=== PATIENT | male | born 1985 | race Caucasian/White ===

== ENCOUNTER 2016-06-20 22:44 | Emergency (ER) | payer BC, OTHER ==
[~2016-06-20] VITALS: Ht 177.8 cm; Wt 114.5 kg
[2016-06-20 22:49] VITALS: TEMP 37.1; Ht 177.8 cm; Wt 114.5 kg
--- NOTE | 2016-06-20 23:42 | EMERGENCY ROOM VISIT NOTE ---
History First contact with patient: 23:07 Chief Complaint: HAND PAIN/INJURY Stated Complaint: HAND/THUMB PAIN ON RIGHT SIDE History of Present Illness The patient is a 30 year old male who presents to the Emergency Room via private vehicle coming by female with complaints of "hand/thumb pain on right side". Patient states that he "jammed" his thumb around 1 month ago with an unknown injury and has bumped it several times since then. He states that off and on his experience pain in the right thumb and persistently injures this. He does have pain with flexion of the thumb at the base. He rates the pain as a 4/10 and is variable. 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 His significant other who accompanies him has a history of scaphoid fracture therefore she is concerned that he may have this as well. He states that recently today he accidentally struck this region on the doorknob worsening the pain. Review of Systems A complete 6-point Review of Systems was discussed with the patient, with pertinent positives and negatives listed in the History of Present Illness. All remaining Review of Systems questions can be considered negative unless otherwise specified. Past Medical/Surgical History Medical Problems: (1) No Known Active Medical Problems High blood pressure, was indeed extraction Family History Diabetes, heart disease, blood pressure, cancer Social History Smoking Status: Never Smoker Social History: Patient lives at home with . He denies alcohol and tobacco use. Current/Historical Medications No Active Prescriptions or Reported Meds Allergies Coded Allergies: Iodinated Diagnostic Agents (Verified Allergy, Severe, ANAPHYLAXIS, ) Iodine (Verified Allergy, Severe, ANAPHYLAXIS, 06/20/16) Shellfish (Verified Allergy, Unknown, ., 06/20/16) Physical Exam Vital Signs Date Time Temp Pulse Resp B/P Pulse Ox O2 Delivery O2 Flow Rate FiO2 06/21/16 00:03 88 18 158/110 96 06/20/16 22:49 37.1 72 18 163/104 97 Room Air Physical Exam VITAL SIGNS - Vital signs and nursing notes were reviewed. Patient is afebrile , he is hypertensive at 163/104, he is not tachycardic and is saturating well on room air 97%. GENERAL -30-year-old male appearing his stated age who is in no acute distress. Communicates well with provider and answers questions appropriately. SKIN - Without rashes. The integument overlying the right hand is unremarkable. EXTREMITIES - No clubbing or peripheral cyanosis. No pretibial edema present. +3 /5 right radial pulses palpated throughout. +5/5 strength noted in UE/LE bilaterally. Positive Daly test. There is no snuffbox tenderness. Minimal tenderness to palpation. The pain is on the dorsal and volar aspect of the right first MCP joint. Minimal tenderness to palpation. Good capillary refill. Patient able flex and extend the thumb. There is no tenderness to the hand or other digits. There is no wrist tenderness. There is no forearm tenderness. NEUROLOGIC - Sensory intact to light touch throughout the right hand. No neurologic deficits. Medical Decision & Procedures ER Provider Diagnostic Interpretation: Radiograph as read by myself and revealed no acute fracture or dislocation. Official result pending. Patient was informed upon this. Patient was informed upon the chance of occult fracture. Medical Decision Emergency department protocol had already obtained a radiograph of the right thumb prior to me seeing the patient. Patient was seen and evaluated as above. Radiograph as per my interpretation does not reveal any acute fractures. Examination reveals potential de Quervain's tenosynovitis but an occult fracture cannot be ruled out. Patient was educated upon management and fitted with a thumb spica splint. This was with good fit. He was found to be hypertensive and was instructed upon follow-up. He did not want anything for pain. I do not suspect any emergent or surgical nature the patient's pain at this time. Patient was instructed upon management, had questions answered prior to discharge and was discharged home in good condition. He was going to give the name for orthopedic surgeon however his indicated that they had seen [facility] and would go there. In the evaluation and treatment of this patient, the following differential diagnoses were considered: Wrist Sprain, Wrist Fracture, de Quervain's tenosynovitis, contusion, finger fracture, Wrist Dislocation, Scapholunate Dissociation, Carpal Fracture, Metacarpal Fracture, Radial Styloid Process Fracture, Ulnar Styloid Process Fracture, or Carpal Tunnel Syndrome. Impression Primary Impression: Pain of right thumb Departure Information Dispostion Home / Self-Care Condition GOOD Prescriptions No Active Prescriptions or Reported Meds Referrals Dina Rojas PA-C (PCP) Patient Instructions My [facility] Additional Instructions You have been treated in the Emergency Department for right thumb pain. For pain control, you can use the following essm-ieu-dzhujke medicines (if >12 yo): - Regular strength (325mg/tab) Tylenol (acetaminophen) 2 tabs every 4-6 hours as needed. Do not exceed 12 tablets in a 24 hour period. Avoid taking more than 4 grams (4000 mg) of Tylenol per day. This includes any other sources of acetaminophen you may take on a regular basis. - Regular strength (200 mg/tab) Advil (ibuprofen) 1-2 tabs every 4-6 hours as needed. Do not exceed a dose of 3200 mg per day. If this is a recent injury (<24 hrs), ice can be applied to the area of pain for the first 3 days to help decrease pain and inflammation. You have been provided the number for an Orthopaedic Surgeon. You should call this number as soon as possible to establish a follow-up visit from today's Emergency Department visit. Keep the brace/splint in place until evaluated by Orthopedics. Return to the Emergency Department if your current symptoms worsen despite treatment course outlined above, or if you develop any of the following symptoms : intractable pain despite aforementioned treatment course or new onset of numbness or tingling of the fingers. Your blood pressure was found to be elevated today at 163/104. Please have this repeated with your family doctor. Please return to the emergency department with any new/concerning symptoms.
[2016-06-21 00:03] VITALS: BP 158/110; PULSE 88; O2SAT 96
--- NOTE | 2016-06-21 06:36 | DIAGNOSTIC IMAGING REPORT ---
RIGHT THUMB RADIOGRAPHS CLINICAL HISTORY: Right thumb pain. Injury. COMPARISON: None FINDINGS: Alignment of the right thumb is anatomic. There is no acute fracture or osseous lesion. Joint spaces are preserved. No erosions are identified. IMPRESSION: No abnormality of the right thumb. Electronically signed by: Prabhjot Guerrero M.D. 06/21/2016 6:34 AM Dictated Date/Time: 06/21/2016 6:33 AM
== END 2016-06-21 00:04 | disposition home or self-care (01) ==
LOC: C.EDB 22:45 → C.EDD 06-21 00:04
DX: M79.644 Pain in right finger(s) (principal); Z91.013 Allergy to seafood; Z91.041 Radiographic dye allergy status; Z83.3 Family history of diabetes mellitus; Z82.49 Family history of ischemic heart disease and other diseases of the circulatory system

== ENCOUNTER → 2016-06-28 | Outpatient (CLI) | payer BC, OTHER ==
[2016-06-28 14:26] LABS: CHOLESTEROL/HDL RATIO 5.9
== END | disposition home or self-care (01) ==
LOC: C.LAB 11:42
PROVIDERS: ATTEND Internal Medicine
DX: E78.5 Hyperlipidemia, unspecified (principal)

== ENCOUNTER 2016-08-12 23:29 | Emergency (ER) | payer BC, OTHER ==
[~2016-08-12] VITALS: Ht 177.8 cm; Wt 115.8 kg
[2016-08-12 23:33] VITALS: Ht 177.8 cm; Wt 115.8 kg
[2016-08-12] MEDS ORDERED: IBUPROFEN 800 MG TAB PO STA (23:42)
[2016-08-12] MEDS ORDERED: ACETAMINOPHEN 500 MG TAB PO STA (23:42)
[2016-08-12] MEDS ORDERED: ALBUT/IPRATROP 3MG/0.5MG NEB 3 ML VIAL INH STA (23:52)
[2016-08-12] MEDS ORDERED: ALBUTEROL HFA 8 GM INHALER INH STA (23:52)
[2016-08-12] MEDS ORDERED: PSEUDOEPHEDRINE HCL 30 MG TAB PO STA (23:52)
[2016-08-13 00:56] VITALS: TEMP 37.5
--- NOTE | 2016-08-13 01:16 | EMERGENCY ROOM VISIT NOTE ---
History First contact with patient: 23:40 Chief Complaint: ILLNESS Stated Complaint: EAR PRESSURE, COUGH, NASAL CONGESTION History of Present Illness The patient is a 30 year old male who presents to the Emergency Room with complaints of fever, chills, cough, congestion, body aches and pains for the past 4 days. Fever started yesterday. Patient does not smoke. Patient denies chest pain, dyspnea, neck stiffness, abdominal pain, vomiting, diarrhea, sore throat. He is tolerating by mouth fluids and food. No Tylenol or Motrin today. Review of Systems See HPI for pertinent positives & negatives. A total of 10 systems reviewed and were otherwise negative. 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 Vital signs febrile GENERAL: Pleasant male, in no acute distress, nondiaphoretic, well-developed well-nourished. SKIN: The skin was without rashes, erythema, edema, or bruising. There is no tenting of the skin. Capillary reflex less than 2 seconds. HEAD: Normocephalic atraumatic. EARS: External auditory canals clear, tympanic membranes pearly guerrero without erythema or effusion bilaterally. EYES: Pupils equal round and reactive to light and accommodation. Conjunctivae without injection, sclerae without icterus. Extraocular movements intact. NOSE: Patent, turbinates without inflammation or discharge. No sinus tenderness. MOUTH: Mucous membranes mile dry. Pharynx without erythema or exudate. Uvula midline. Airway patent. Tongue does not deviate. NECK: Supple without nuchal rigidity. No lymphadenopathy. No thyromegaly. Cervical spine is nontender. No JVD. HEART: Regular rate and rhythm without murmurs gallops or rubs. LUNGS: Clear to auscultation bilaterally without wheezes, rales or rhonchi. No dullness to percussion. No retractions or accessory muscle use. ABDOMEN: Positive bowel sounds x 4. Normal tympanic percussion. Soft, nontender, without masses or organomegaly. Ross sign negative. No guarding or rebound tenderness. MUSCULOSKELETAL: No muscle atrophy, erythema, or edema noted. NEURO: Patient was alert and oriented to person place and time. Normal sensation to light and sharp touch. No focal neurological deficits. Medical Decision & Procedures Laboratory Results Test 08/12/16 23:48 Influenza Type A Antigen Neg for Influ A (NEG) Influenza Type B Antigen Neg for Influ B (NEG) Medications Administered Medications (Trade) Dose Ordered Sig/Ida Route Start Time Stop Time Status Last Admin Dose Admin Acetaminophen (Tylenol Tab) 1,000 mg NOW STAT PO 08/12/16 23:42 08/12/16 23:43 DC 08/13/16 00:08 1,000 MG Ibuprofen (Motrin Tab) 800 mg NOW STAT PO 08/12/16 23:42 08/12/16 23:43 DC 08/13/16 00:08 800 MG Albuterol/ Ipratropium (Duoneb) 3 ml NOW STAT INH 08/12/16 23:52 08/12/16 23:53 DC 08/13/16 00:10 3 ML Pseudoephedrine HCl (Sudafed Tab) 60 mg NOW STAT PO 08/12/16 23:52 08/12/16 23:53 DC 08/13/16 00:09 60 MG ED Course Prior records/ancillary studies reviewed. Triage Nursing notes reviewed. Additional history obtained from family The patient's history was concerning for fever. Differential diagnosis: Etiologies such as viral syndrome, otitis, pharyngitis, pneumonia, influenza, meningitis, urinary tract infection, sepsis, bacteremia, as well as others were entertained. Physical examination: Patient is alert, interactive and well-appearing ER treatment provided: Tylenol, Motrin, nebulizer On reassessment the patient felt better. Diagnostics interpreted by me: The labs revealed negative flu Imaging studies: Chest x-ray with no acute consolidation, pneumothorax or free air per my interpretation This appears to be consistent with influenza. Patient is well appearing. His symptoms of an greater than 2 days. He is outside the window to treat. No signs of meningitis. He was tolerating fluids. He felt much better after being medicated as above. He was advised to rest, stay well-hydrated and to take medications as directed. He was advised no school until 24 hours fever free as he is highly contagious. He was advised to follow-up health services in a few days or here in the ER sooner for high fevers, lethargy, neck stiffness , worsening signs or symptoms or as needed. By the evaluation outlined above emergent etiologies such as otitis, pharyngitis, pneumonia, meningitis, urinary tract infection, sepsis, bacteremia, as well as others were deemed relatively unlikely. The pt informed about the findings as listed above. All questions were answered and pleased with the treatment. Return instructions were outlined and the patient was discharged in stable condition. Referral: The patient was referred back to their primary care physician for follow-up in 2 to 3 days for a recheck of the current condition. Medical Decision As above Impression Primary Impression: Influenza Departure Information Dispostion Home / Self-Care Condition GOOD Prescriptions No Active Prescriptions or Reported Meds Referrals RV. Hicks MD (PCP) Patient Instructions My [facility] Additional Instructions Acetaminophen(Tylenol) may be used for fever or pain. Use 1000mg every six hours as needed. Avoid using more than 3000mg in a 24 hour period. (AND/OR) Ibuprofen(Motrin, Advil) may be used for fever or pain. Use 600mg every six hours as needed. Take with food. Avoid using more than 2400mg in a 24 hour period. Do not use 2400mg per day for more than three consecutive days without physician direction. Prolonged inappropriate use can lead to stomach upset or ulcers. Afrin nasal spray: 2-3 sprays to each nostril twice daily as needed for congestion. Do not use for more than 3-4 days because it can lead to worsening rebound congestion. Pseudoephedrine(Sudaphed): 30-60mg every 6 hours as needed for nasal congestion. Do not take this with other stimulant products or supplements. Albuterol Inhaler: Take 2 puffs four times daily for seven days, then as needed. Rest and drink plenty of fluids. Controlling your fever with Tylenol and Ibuprofen as above will make you feel better. Wash your hands after nose blowing, sneezing, or coughing. Most germs are spread through contact, therefore improper hygiene may result in your close contacts and loved ones becoming ill just like you. Continue current medications. Return to the ER for severe headache, neck stiffness, chest pain, difficulty breathing, fevers, vomiting, worsening of your condition, or as needed. Follow up with your primary physician this week for a recheck of your current condition.
[2016-08-13 01:33] VITALS: BP 157/97; PULSE 102; O2SAT 96
[2016-08-13 03:09] LABS: INFLUENZA A PCR Neg for Influ A (NEG); INFLUENZA B PCR Neg for Influ B (NEG)
--- NOTE | 2016-08-13 07:53 | DIAGNOSTIC IMAGING REPORT ---
TWO VIEW CHEST CLINICAL HISTORY: Cough and fever. FINDINGS: PA and lateral chest radiographs are obtained. No prior studies are available for comparison at the time of dictation. The cardiomediastinal silhouette is unremarkable. The lungs and pleural spaces are clear. There is no pneumothorax. The bony thorax appears intact. IMPRESSION: No active disease in the chest. Electronically signed by: Bartolo Potter M.D. 08/13/2016 7:52 AM Dictated Date/Time: 08/13/2016 7:52 AM
== END 2016-08-13 01:25 | disposition home or self-care (01) ==
LOC: C.EDB 23:30 → C.EDA 08-13 01:25
DX: J11.1 Influenza due to unidentified influenza virus with other respiratory manifestations (principal); I10 Essential (primary) hypertension; E78.5 Hyperlipidemia, unspecified

== ENCOUNTER → 2017-08-29 | Outpatient (CLI) | payer OTHER ==
[2017-08-29 17:57] LABS: ALBUMIN 4.3 gm/dl (3.4-5.0); ALT/SGPT 35 U/L (12-78); BLOOD UREA NITROGEN 12 mg/dl (7-18); CALCIUM 9.1 mg/dl (8.5-10.1); CARBON DIOXIDE 26 mmol/L (21-32); CREATININE 0.88 mg/dl (0.60-1.40); GLUCOSE 99 mg/dl (70-99); POTASSIUM 3.6 mmol/L (3.5-5.1); SODIUM 137 mmol/L (136-145)
[2017-08-29 18:06] LABS: ALKALINE PHOSPHATASE 92 U/L (45-117); AST/SGOT 20 U/L (15-37); CHOLESTEROL 219 mg/dl (0-200); LDL CHOLESTEROL CALCULATED 122 mg/dl; TOTAL PROTEIN 8.4 gm/dl (6.4-8.2)
== END | disposition home or self-care (01) ==
LOC: C.LAB1850 16:31
PROVIDERS: ATTEND Internal Medicine
DX: E78.5 Hyperlipidemia, unspecified (principal)

== ENCOUNTER 2017-09-26 15:23 | Emergency (ER) | payer OTHER ==
[~2017-09-26] VITALS: Ht 175.3 cm; Wt 119.4 kg
[2017-09-26 15:32] VITALS: BP 163/99; PULSE 92; TEMP 36.8; O2SAT 97; Ht 175.3 cm; Wt 119.4 kg
--- NOTE | 2017-09-26 16:07 | EMERGENCY ROOM VISIT NOTE ---
ED Visit Note First contact with patient: 15:35 CHIEF COMPLAINT: Sore throat, congestion, ear pain and cough 1.5 days HISTORY OF PRESENT ILLNESS: Patient is a 31-year-old male who presents the emergency department for evaluation of upper respiratory symptoms that started 1.5 days ago. He reports pressure in his ears, a congested, runny nose, dry cough and a sore throat. He has not checked his temperature with a thermometer. He has been taking DayQuil and drinking a lot of orange juice. He reports that his 13-year-old daughter was diagnosed with strep today. 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 He states his PCP could not see him for 3 days. REVIEW OF SYSTEMS: Review of systems as per HPI. All other systems reviewed were negative. 10 systems reviewed. PMH: Electronic medical records are reviewed and summarized as above/below. See Problem List. SOCIAL HISTORY: Patient lives at home with his family. Non-smoker.. PHYSICAL EXAM: Vital Signs: Reviewed Nurse's notes. MENTAL STATUS: Alert and cooperative. Nontoxic appearing. HEAD: Atraumatic, without temporal or scalp tenderness. EYES: PERRL, EOMI, no discharge or injection. EARS: Tympanic membranes intact, not inflamed, have normal contour. External canals clear. NOSE: Nares patent, turbinates edematous and boggy with clear rhinorrhea. MOUTH: Mucous membranes moist, no lesions, tongue and gums appear normal. THROAT: No pharyngeal injection, exudates, or tonsillar hypertrophy. Airway is patent. NECK: Supple, nontender, no lymphadenopathy. HEART: Regular rate and rhythm without murmurs, ectopy, gallops, or rubs. LUNGS: Clear to auscultation and breath sounds equal, no wheezes, rales, or rhonchi. SKIN: Normal. NEUROLOGICAL: Sensory and motor functions grossly intact. Normal gait. EMERGENCY DEPARTMENT COURSE: Rapid strep was negative. Backup cultures were sent. Differential diagnoses entertained included viral versus strep pharyngitis, other URI including influenza, bronchitis, among others. The patient has been sick for 1.5 days and his illness is likely viral in nature. Conservative care measures were discussed. He was encouraged to use [id number] medications for symptomatic relief. We will contact him if his backup culture is positive. Medication reconciliation: I attest that I have personally reviewed the patient' s current medication list. Blood pressure screening: Patient was found to have a slightly elevated blood pressure due to circumstances. I do not believe that the patient requires hypertension monitoring. Problem List Medical Problems: (1) Corneal abrasion, left Status: Resolved (2) Essential (Primary) Hypertension Status: Chronic (3) Foreign body, eye Status: Resolved (4) Hyperlipidemia, Unspecified Status: Chronic (5) Influenza Status: Resolved (6) Laceration of hand Status: Resolved (7) Pain of right thumb Status: Resolved Current/Historical Medications No Active Prescriptions or Reported Meds Allergies Coded Allergies: Iodinated Diagnostic Agents (Verified Allergy, Severe, ANAPHYLAXIS, ) Iodine (Verified Allergy, Severe, ANAPHYLAXIS, 08/13/16) Shellfish (Verified Allergy, Unknown, ., 08/13/16) Vital Signs Date Time Temp Pulse Resp B/P (MAP) Pulse Ox O2 Delivery O2 Flow Rate FiO2 09/26/17 15:32 36.8 92 20 163/99 97 Room Air Departure Information Impression Primary Impression: Upper respiratory infection Prescriptions No Active Prescriptions or Reported Meds Referrals RV. Hicks MD (PCP) Patient Instructions My [facility] Additional Instructions Acetaminophen(Tylenol) may be used for fever or pain. Use 1000mg every six hours as needed. Avoid using more than 3000mg in a 24 hour period. (AND/OR) Ibuprofen(Motrin, Advil) may be used for fever or pain. Use 600mg every six hours as needed. Take with food. Avoid using more than 2400mg in a 24 hour period. Do not use 2400mg per day for more than three consecutive days without physician direction. Prolonged inappropriate use can lead to stomach upset or ulcers. Pseudoephedrine(Sudaphed): 30-60mg every 6 hours as needed for nasal congestion. Do not take this with other stimulant products or supplements. Guaifenesin (Mucinex) : Take 1200 mg every 12 hours as needed for nasal/chest congestion, to help thin secretions. Robitussin or Delsym if needed for cough. Rest and drink plenty of fluids. Wash your hands after nose blowing, sneezing, or coughing. Most germs are spread through contact, therefore improper hygiene may result in your close contacts and loved ones becoming ill just like you. Continue current medications. Return to the ER for severe headache, neck stiffness, chest pain, difficulty breathing, fevers, vomiting, worsening of your condition, or as needed. Follow up with your primary physician this week for a recheck of your current condition.
== END 2017-09-26 16:25 | disposition home or self-care (01) ==
LOC: C.EDB 15:24 → C.EDD 16:25
DX: J06.9 Acute upper respiratory infection, unspecified (principal); Z91.041 Radiographic dye allergy status; Z91.013 Allergy to seafood